=== PATIENT | female | born 1950 | race Caucasian/White ===

== ENCOUNTER 2020-10-31 01:56 | Observation (INO) ==
[2020-10-31 02:55] LABS: Bilirubin,Urine Negative (Negative); Blood,Urine Trace (Negative); Clarity,Urine Clear (Clear); Color,Urine Light-Yellow (Yellow); Glucose,Urine (UA) Normal (Normal); Ketones,Urine Negative (Negative); Leukocyte Esterase,Urine Negative (Negative); Mucus,Urine Few per lpf (None-Few); Nitrite,Urine Negative (Negative); Protein,Urine Negative (Neg-Trace); Specific Gravity,Urine 1.011 (1.010-1.025); Squamous Epithelial Cell,Urine Few per hpf (None-Few); Urobilinogen,Urine Normal (Normal); WBC,Urine 0-3 per hpf (0-3)
[2020-10-31 02:56] LABS: Basophils % 0.4 %; Eosinophils # 0.1 K/mcL (0.0-0.6); Eosinophils % 1.2 %; Hematocrit 43.9 % (35.3-44.9); Hemoglobin 15.1 g/dL (11.5-15.4); Immature Granulocytes % 0.3 % (0-4); Lymphocytes # 2.4 K/mcL (0.6-4.6); Lymphocytes % 22.9 %; Mean Corpuscular HGB Conc 34.4 g/dL (31.6-35.5); Mean Corpuscular Hemoglobin 31.9 pg (28.0-33.3); Mean Corpuscular Volume 92.6 fL (83.0-100.0); Mean Platelet Volume 10.7 fL (9.4-12.4); Neutrophils # 6.7 K/mcL (1.6-8.9); Platelet Count 369 K/mcL (140-400); Red Blood Count 4.74 M/mcL (3.82-4.97); Red Cell Distribution Width 13.3 % (11.5-14.5); Segmented Neutrophils % 65.2 %; White Blood Count 10.3 K/mcL (4.3-11.1)
[2020-10-31 03:02] LABS: INR 1.1; Prothrombin Time 13.2 Seconds (9.4-12.1)
[2020-10-31 03:05] LABS: Activated Partial Thrombo Time 28.3 Seconds (26.0-36.0)
[2020-10-31 03:19] LABS: BUN/Creatinine Ratio 13 (6-26); Blood Urea Nitrogen 12 mg/dL (8-23); Carbon Dioxide 24 mEq/L (23-29); Chloride 97 mEq/L (98-107); Glucose 109 mg/dL (70-105); Osmolality,Calculated 276 (280-300); Potassium 3.9 mEq/L (3.5-5.1); Sodium 133 mEq/L (136-145); Troponin I < 0.03 ng/mL (< 0.04); eGFR For African Americans > 60 (> 60); eGFR For Non-African Americans 58 (> 60)
[2020-10-31] MEDS ORDERED: Acetaminophen 325 MG TABLET PO PRN (03:57)
[2020-10-31] MEDS ORDERED: Ondansetron 4 MG/2 ML VIAL IVP PRN (03:57)
[2020-10-31] MEDS ORDERED: Naloxone 0.4 MG/ML INJ IVP PRN (03:57)
[2020-10-31] MEDS ORDERED: Perflutren Lipid Microsphere 1.3 ML in 0.9 % Sodium Chloride 8.7 ML IVP PRN (04:01)
[2020-10-31] MEDS ORDERED: D5% in Water 1,000 ML IVC PRN (04:03)
[2020-10-31] MEDS ORDERED: *HR* Dextrose 50 % in Water (Vial) 50 ML VIAL IVP PRN (04:03)
[2020-10-31] MEDS ORDERED: Dextrose Gel 15 GM/37.5 ML TUBE PO PRN ×2 (04:03)
[2020-10-31 04:42] LABS: Chol/HDL Ratio 2.9 (0-4.9); Cholesterol 140 mg/dL (< 200); HDL Cholesterol 48 mg/dL (40-59); LDL Cholesterol,Calculated 69 mg/dL (< 100); Magnesium 1.8 mg/dL (1.6-2.6); Triglycerides 113 mg/dL (< 150)
[2020-10-31] MEDS ORDERED: Insulin LISPRO 300 UNITS/3 ML VIAL SUBQ SCH (06:00)
[2020-10-31] MEDS: *HR* Heparin 5,000 UNIT/ML VIAL SQ SCH ×3 (06:27→19:56)
[2020-10-31 09:37] LABS: Estimated Average Glucose 123 mg/dl; Hemoglobin A1C 5.9 %
[2020-10-31] MEDS ORDERED: Insulin DETEMIR 100 UNIT/ML X5UNITS SUBQ SCH (21:00)
[2020-11-01] MEDS: *HR* Heparin 5,000 UNIT/ML VIAL SQ SCH (06:06)
[2020-11-01] MEDS ORDERED: Regadenoson 0.4 MG/5 ML SYRINGE IVP ONE (06:14)
[2020-11-01] MEDS ORDERED: Metoprolol XL (24 HR) Succ 25 MG TAB.ER.24H PO SCH (09:00)
[2020-11-01 11:25] VITALS: BP 119/65
== END 2020-11-01 13:26 | disposition home or self-care (01) ==
LOC: 2ANU 01:56 → EMEROOARM 01:56 → SUATTDRO 04:09 → 2ANU 04:32
PROVIDERS: ADMIT Family Medicine; ATTEND Internal Medicine

== ENCOUNTER 2022-04-07 12:34 | Inpatient (IN) ==
[2022-04-07 13:09] LABS: Bilirubin,Urine Negative (Negative); Blood,Urine Negative (Negative); Clarity,Urine Clear (Clear); Color,Urine Yellow (Yellow); Glucose,Urine (UA) Normal (Normal); Ketones,Urine 10 mg/dL (Negative); Leukocyte Esterase,Urine Negative (Negative); Nitrite,Urine Negative (Negative); PH,Urine 6.5 pH Units (5.0-8.0); Protein,Urine Trace mg/dL (Neg-Trace); Specific Gravity,Urine 1.019 (1.010-1.025); Urobilinogen,Urine Normal (Normal)
[2022-04-07 13:15] LABS: Basophils % 0.2 %; Hematocrit 46.5 % (35.3-44.9); Hemoglobin 16.3 g/dL (11.5-15.4); Immature Granulocytes % 0.5 % (0-4); Lymphocytes # 2.2 K/mcL (0.6-4.6); Lymphocytes % 10.5 %; Mean Corpuscular HGB Conc 35.1 g/dL (31.6-35.5); Mean Corpuscular Hemoglobin 32.8 pg (28.0-33.3); Mean Corpuscular Volume 93.6 fL (83.0-100.0); Mean Platelet Volume 9.7 fL (9.4-12.4); Monocytes # 0.8 K/mcL (0.0-1.3); Monocytes % 3.7 %; Neutrophils # 17.5 K/mcL (1.6-8.9); Platelet Count 480 K/mcL (140-400); Red Blood Count 4.97 M/mcL (3.82-4.97); Red Cell Distribution Width 13.9 % (11.5-14.5); Segmented Neutrophils % 85.1 %; White Blood Count 20.6 K/mcL (4.3-11.1)
[2022-04-07] MEDS ORDERED: 0.9 % Sodium Chloride 1,000 ML IV ONE (13:42)
[2022-04-07] MEDS ORDERED: Iopamidol - 370 500 ML MLS IVP ONE (13:42)
[2022-04-07] MEDS ORDERED: cefTRIAXone 1,000 MG in 0.9 % Sodium Chloride Mini Bag 100 ML IVPB ONE (13:42)
[2022-04-07] MEDS ORDERED: MetroNIDAZOLE 500 MG/100 ML 500 MG/100 ML BAG IVPB ONE (13:42)
[2022-04-07] MEDS ORDERED: Morphine Sulfate 2 MG/ML SYRINGE IVP ONE ×2 (13:42→15:34)
[2022-04-07] MEDS ORDERED: Ondansetron 4 MG/2 ML VIAL IVP PRN ×4 (13:42→20:42)
[2022-04-07 13:46] LABS: Alanine Aminotransferase 14 Units/L (7-52); Albumin 4.4 g/dL (3.5-5.7); Albumin/Globulin Ratio 1.6 (1.1-2.2); Alkaline Phosphatase 52 Units/L (34-104); Aspartate Amino Transferase 12 Units/L (13-39); BUN/Creatinine Ratio 20 (6-26); Bilirubin,Direct 0.1 mg/dL (0.0-0.2); Bilirubin,Indirect 0.4 mg/dL (0.0-1.0); Bilirubin,Total 0.5 mg/dL (0.3-1.0); Blood Urea Nitrogen 17 mg/dL (8-23); Calcium 9.9 mg/dL (8.6-10.3); Carbon Dioxide 27 mEq/L (23-29); Chloride 94 mEq/L (98-107); Globulin 2.7 g/dL (2.4-3.5); Glucose 164 mg/dL (70-105); Lipase 14 Units/L (11-82); Osmolality,Calculated 277 (280-300); Potassium 3.8 mEq/L (3.5-5.1); Sodium 131 mEq/L (136-145); Total Protein 7.1 g/dL (6.4-8.9); Troponin I < 0.03 ng/mL (< 0.04); eGFR For African Americans > 60 (> 60); eGFR For Non-African Americans > 60 (> 60)
[2022-04-07] MEDS ORDERED: *HR* Midazolam HCl 2 MG/2 ML VIAL IVP ONE (16:27)
[2022-04-07] MEDS ORDERED: Lidocaine Jelly 6ml 1 APPL/6 ML JEL.PF.APP MM ONE (16:27)
[2022-04-07] MEDS ORDERED: Morphine Sulfate 2 MG/ML SYRINGE IVP PRN (17:04)
[2022-04-07] MEDS ORDERED: D5% in Water 1,000 ML IVC PRN (17:05)
[2022-04-07] MEDS ORDERED: *HR* Dextrose 50 % in Water (Syg) 50 ML SYRINGE IVP PRN (17:05)
[2022-04-07] MEDS ORDERED: Dextrose Gel 15 GM/37.5 ML TUBE PO PRN ×2 (17:05)
[2022-04-07] MEDS ORDERED: Naloxone 0.4 MG/ML INJ IVP PRN (17:07)
[2022-04-07] MEDS ORDERED: Albumin Human 5% 12.5 GM/250 ML IV.SOLN ONE (18:08)
[2022-04-07] MEDS ORDERED: Lidocaine -MPF 2% 5 ML VIAL ONE (18:12)
[2022-04-07] MEDS ORDERED: *HR* Rocuronium Bromide 50 MG/5 ML VIAL ONE (18:12)
[2022-04-07] MEDS ORDERED: Lidocaine HCL 4 ML Topical Solution (Laryng-O-Jet Kit Sterile Pak) TP ONE (18:12)
[2022-04-07] MEDS ORDERED: *HR* FentaNYL (PF) 100 MCG/2 ML VIAL ONE (18:12)
[2022-04-07] MEDS ORDERED: CefOXitin 1,000 MG VIAL ONE (18:12)
[2022-04-07] MEDS ORDERED: Ondansetron 4 MG/2 ML VIAL ONE (18:12)
[2022-04-07] MEDS ORDERED: *HR* Propofol 200 MG/20 ML VIAL IVP ONE (18:12)
[2022-04-07] MEDS ORDERED: *HR* HYDROmorphone (PF) 1 MG/ML SYRINGE IVP ONE (18:26)
[2022-04-07] MEDS ORDERED: *HR* HYDROmorphone (PF) 1 MG/ML SYRINGE ONE (18:29)
[2022-04-07] MEDS: Ringers Solution, Lactated 1,000 ML ONE ×3 (18:50→20:10)
[2022-04-07] MEDS ORDERED: Acetaminophen IV 1,000 MG/100 ML BAG IVPB ONE ×2 (19:15→19:25)
[2022-04-07] MEDS ORDERED: Sugammadex Sodium 200 MG/2 ML VIAL IV ONE (19:36)
[2022-04-07] MEDS ORDERED: Ketorolac 30 MG/ML VIAL ONE (20:05)
[2022-04-07] MEDS: *HR* HYDROmorphone PF 0.5 MG/0.5 ML SYRINGE IVP PRN ×2 (20:54→21:04)
[2022-04-07] MEDS: 0.9 % Sodium Chloride 1,000 ML IVC SCH (22:18)
[2022-04-07] MEDS: Insulin LISPRO 300 UNITS/3 ML VIAL SUBQ SCH ×2 (22:18→23:34)
[2022-04-08] MEDS: 0.9 % Sodium Chloride 1,000 ML IVC SCH (01:18)
[2022-04-08] MEDS: Insulin LISPRO 300 UNITS/3 ML VIAL SUBQ SCH ×4 (05:52→23:43)
[2022-04-08] MEDS ORDERED: *HR* Metoprolol 5 MG/5 ML VIAL IVP PRN (07:00)
[2022-04-08] MEDS ORDERED: *HR* HYDROmorphone PCA *PREMADE* 20 MG/1MG/ML (20mL) PCA VIAL IVC PRN (07:00)
[2022-04-08] MEDS ORDERED: Naloxone 0.4 MG/ML INJ IVP PRN (07:00)
[2022-04-08] MEDS ORDERED: 0.9 % Sodium Chloride 1,000 ML IVC SCH (07:00)
[2022-04-08] MEDS ORDERED: *HR* Dextrose 50 % in Water (Syg) 50 ML SYRINGE IVP PRN (07:00)
[2022-04-08] MEDS ORDERED: Dextrose Gel 15 GM/37.5 ML TUBE PO PRN ×2 (07:00)
[2022-04-08] MEDS ORDERED: Ondansetron 4 MG/2 ML VIAL IVP PRN (07:00)
[2022-04-08] MEDS: Piperacillin/Tazobactam 3.375 GM in 0.9 % Sodium Chloride Mini Bag 100 ML IVPB SCH ×3 (08:33→23:42)
[2022-04-08] MEDS ORDERED: Chloraseptic Spray 177 ML BOTTLE MM PRN (09:59)
[2022-04-08 11:32] LABS: Basophils % 0.2 %; Eosinophils % 0.1 %; Hematocrit 35.3 % (35.3-44.9); Immature Granulocytes % 0.4 % (0-4); Lymphocytes # 2.6 K/mcL (0.6-4.6); Lymphocytes % 18.1 %; Mean Corpuscular HGB Conc 34.3 g/dL (31.6-35.5); Mean Corpuscular Hemoglobin 32.6 pg (28.0-33.3); Mean Corpuscular Volume 95.1 fL (83.0-100.0); Mean Platelet Volume 9.9 fL (9.4-12.4); Monocytes # 1.3 K/mcL (0.0-1.3); Neutrophils # 10.2 K/mcL (1.6-8.9); Platelet Count 325 K/mcL (140-400); Red Blood Count 3.71 M/mcL (3.82-4.97); Red Cell Distribution Width 14.1 % (11.5-14.5); Segmented Neutrophils % 72.2 %; White Blood Count 14.2 K/mcL (4.3-11.1)
[2022-04-08 11:34] LABS: Hemoglobin 12.1 g/dL (11.5-15.4)
[2022-04-08] MEDS: D5% in 0.45% NACL w KCl 20 MEQ/1,000 ML MLS IVC SCH ×2 (11:37→21:42)
[2022-04-08 11:43] LABS: BUN/Creatinine Ratio 21 (6-26); Blood Urea Nitrogen 15 mg/dL (8-23); Calcium 8.1 mg/dL (8.6-10.3); Carbon Dioxide 25 mEq/L (23-29); Chloride 105 mEq/L (98-107); Glucose 116 mg/dL (70-105); Magnesium 1.6 mg/dL (1.6-2.6); Osmolality,Calculated 282 (280-300); Sodium 135 mEq/L (136-145); eGFR For African Americans > 60 (> 60); eGFR For Non-African Americans > 60 (> 60)
[2022-04-09 05:55] LABS: Basophils % 0.2 %; Eosinophils % 0.2 %; Hematocrit 34.7 % (35.3-44.9); Immature Granulocytes % 0.4 % (0-4); Lymphocytes # 2.4 K/mcL (0.6-4.6); Lymphocytes % 14.2 %; Mean Corpuscular HGB Conc 34.3 g/dL (31.6-35.5); Mean Corpuscular Hemoglobin 32.4 pg (28.0-33.3); Mean Platelet Volume 10.9 fL (9.4-12.4); Monocytes # 1.6 K/mcL (0.0-1.3); Monocytes % 9.3 %; Platelet Count 301 K/mcL (140-400); Red Blood Count 3.67 M/mcL (3.82-4.97); Red Cell Distribution Width 13.9 % (11.5-14.5); Segmented Neutrophils % 75.7 %; White Blood Count 17.2 K/mcL (4.3-11.1)
[2022-04-09 05:58] LABS: Hemoglobin 11.9 g/dL (11.5-15.4); Mean Corpuscular Volume 94.6 fL (83.0-100.0)
[2022-04-09] MEDS: Insulin LISPRO 300 UNITS/3 ML VIAL SUBQ SCH ×4 (06:07→23:38)
[2022-04-09 06:21] LABS: BUN/Creatinine Ratio 11 (6-26); Blood Urea Nitrogen 7 mg/dL (8-23); Calcium 8.4 mg/dL (8.6-10.3); Carbon Dioxide 22 mEq/L (23-29); Chloride 101 mEq/L (98-107); Glucose 142 mg/dL (70-105); Magnesium 1.7 mg/dL (1.6-2.6); Osmolality,Calculated 272 (280-300); Potassium 3.7 mEq/L (3.5-5.1); Sodium 131 mEq/L (136-145); eGFR For African Americans > 60 (> 60); eGFR For Non-African Americans > 60 (> 60)
[2022-04-09] MEDS: Piperacillin/Tazobactam 3.375 GM in 0.9 % Sodium Chloride Mini Bag 100 ML IVPB SCH ×3 (08:02→23:50)
[2022-04-09] MEDS: D5% in 0.45% NACL w KCl 20 MEQ/1,000 ML MLS IVC SCH ×2 (08:06→18:11)
[2022-04-09] MEDS: Ketorolac 30 MG/ML VIAL IVP SCH ×3 (12:57→23:49)
[2022-04-09] MEDS: Acetaminophen IV 1,000 MG/100 ML BAG IVPB SCH ×2 (18:02→23:49)
[2022-04-10] MEDS: D5% in 0.45% NACL w KCl 20 MEQ/1,000 ML MLS IVC SCH ×2 (04:24→19:54)
[2022-04-10 05:22] LABS: Basophils # 0.1 K/mcL (0.0-0.2); Basophils % 0.4 %; Eosinophils # 0.3 K/mcL (0.0-0.6); Eosinophils % 2.5 %; Hematocrit 33.8 % (35.3-44.9); Hemoglobin 11.6 g/dL (11.5-15.4); Immature Granulocytes % 0.3 % (0-4); Lymphocytes # 3.4 K/mcL (0.6-4.6); Lymphocytes % 29.2 %; Mean Corpuscular HGB Conc 34.3 g/dL (31.6-35.5); Mean Corpuscular Hemoglobin 32.5 pg (28.0-33.3); Mean Corpuscular Volume 94.7 fL (83.0-100.0); Mean Platelet Volume 10.4 fL (9.4-12.4); Monocytes # 1.1 K/mcL (0.0-1.3); Monocytes % 9.4 %; Neutrophils # 6.8 K/mcL (1.6-8.9); Platelet Count 298 K/mcL (140-400); Red Blood Count 3.57 M/mcL (3.82-4.97); Segmented Neutrophils % 58.2 %; White Blood Count 11.6 K/mcL (4.3-11.1)
[2022-04-10] MEDS: Insulin LISPRO 300 UNITS/3 ML VIAL SUBQ SCH ×3 (05:24→20:01)
[2022-04-10] MEDS: Acetaminophen IV 1,000 MG/100 ML BAG IVPB SCH ×2 (05:31→12:57)
[2022-04-10] MEDS: Ketorolac 30 MG/ML VIAL IVP SCH ×2 (05:32→12:57)
[2022-04-10 05:43] LABS: BUN/Creatinine Ratio 8 (6-26); Blood Urea Nitrogen 5 mg/dL (8-23); Calcium 8.3 mg/dL (8.6-10.3); Carbon Dioxide 23 mEq/L (23-29); Chloride 105 mEq/L (98-107); Glucose 121 mg/dL (70-105); Magnesium 1.6 mg/dL (1.6-2.6); Osmolality,Calculated 277 (280-300); Potassium 3.6 mEq/L (3.5-5.1); Sodium 134 mEq/L (136-145); eGFR For African Americans > 60 (> 60); eGFR For Non-African Americans > 60 (> 60)
[2022-04-10] MEDS: Piperacillin/Tazobactam 3.375 GM in 0.9 % Sodium Chloride Mini Bag 100 ML IVPB SCH ×2 (09:42→19:46)
[2022-04-11] MEDS: Piperacillin/Tazobactam 3.375 GM in 0.9 % Sodium Chloride Mini Bag 100 ML IVPB SCH ×2 (00:20→09:37)
[2022-04-11] MEDS: D5% in 0.45% NACL w KCl 20 MEQ/1,000 ML MLS IVC SCH (03:45)
[2022-04-11 07:06] LABS: Basophils # 0.1 K/mcL (0.0-0.2); Basophils % 0.4 %; Eosinophils # 0.5 K/mcL (0.0-0.6); Eosinophils % 4.1 %; Hematocrit 37.7 % (35.3-44.9); Immature Granulocytes % 0.4 % (0-4); Lymphocytes # 3.1 K/mcL (0.6-4.6); Lymphocytes % 23.9 %; Mean Corpuscular Hemoglobin 32.4 pg (28.0-33.3); Mean Corpuscular Volume 95.4 fL (83.0-100.0); Mean Platelet Volume 10.7 fL (9.4-12.4); Monocytes # 0.8 K/mcL (0.0-1.3); Monocytes % 6.5 %; Neutrophils # 8.3 K/mcL (1.6-8.9); Platelet Count 303 K/mcL (140-400); Red Blood Count 3.95 M/mcL (3.82-4.97); Red Cell Distribution Width 13.9 % (11.5-14.5); Segmented Neutrophils % 64.7 %; White Blood Count 12.9 K/mcL (4.3-11.1)
[2022-04-11 07:07] LABS: Hemoglobin 12.8 g/dL (11.5-15.4)
[2022-04-11] MEDS: Insulin LISPRO 300 UNITS/3 ML VIAL SUBQ SCH ×2 (07:15→11:58)
[2022-04-11 07:25] LABS: BUN/Creatinine Ratio 6 (6-26); Blood Urea Nitrogen 4 mg/dL (8-23); Calcium 8.7 mg/dL (8.6-10.3); Carbon Dioxide 24 mEq/L (23-29); Chloride 104 mEq/L (98-107); Glucose 104 mg/dL (70-105); Osmolality,Calculated 275 (280-300); Potassium 3.3 mEq/L (3.5-5.1); Sodium 134 mEq/L (136-145); eGFR For African Americans > 60 (> 60); eGFR For Non-African Americans > 60 (> 60)
[2022-04-11 08:55] VITALS: TEMP 98
[2022-04-11 11:18] VITALS: BP 128/73; PULSE 81; O2SAT 95
== END 2022-04-11 16:01 | disposition home or self-care (01) | DRG 331 ==
LOC: 3ANU 12:34 → EMEROOARM 12:34 → SUATTDRO 17:44 → 3ANU 17:47
PROVIDERS: ADMIT Family Medicine; ATTEND Internal Medicine